=== PATIENT | male | born 1980 | race Caucasian/White ===

== ENCOUNTER 2017-04-30 02:07 | Inpatient (IN) | payer OTHER ==
[2017-04-30] MEDS ORDERED: morphine CARPU-JECT 4 MG/1 ML DISP.SYRIN IVPUSH ONE (04:15)
[2017-04-30] MEDS ORDERED: SODIUM CHLORIDE 1,000 ML IV STA ×2 (04:15→10:10)
[2017-04-30] MEDS ORDERED: ONDANSETRON 4 MG/2 ML VIAL IVPUSH ONE (04:15)
--- NOTE | 2017-04-30 04:19 | PDOC ---
History of Present Illness - General Chief Complaint: Pain Stated Complaint: ABDOMINAL PAIN Time Seen by Provider: 04/30/17 03:34 History Source: Patient Exam Limitations: No Limitations - History of Present Illness Travel History: No Initial Comments: 04/30/17 04:16 36yo Male patient with no significant past medical history presents to ED c/o RUQ abd pain x 1 week. Patient reports 8/10 pain severity. He states today around 8pm symptoms worsen. Denies n/v/d, fever, rectal bleeding, dysuria, hematuria, change in appetite. Reports Moderate EtOH use. Timing/Duration: reports: getting worse Quality: reports: moderate Abdominal Pain Onset Location: reports: RUQ Pain Radiation: reports: no radiation Activities at Onset: reports: none Treatment Prior to Arrive: worse with: analgesics, antacids, cold pack, heat, laxative, enema, other Aggravating Factors: worse with: None, Defecation, Eating, Emotional upset, Exertion, Boring, Movement, Voiding, Change in position Alleviating Factors: worse with: None, Belching, Shallow Breathing, Defecation, Eating, Holding Breath, Passing Gas, Change in Position, Rest, Voiding, Vomiting Past History - Travel Traveled outside of the country in the last 30 days: No Close contact w/someone who was outside of country & ill: No - Past Medical History Allergies/Adverse Reactions: Allergies Allergy/AdvReac Type Severity Reaction Status Date / Time No Known Allergies Allergy Verified 04/30/17 04:01 - Psycho/Social/Smoking Cessation Hx Suicidal Ideation: No Smoking History: Never smoked Have you smoked in the past 12 months: No Information on smoking cessation initiated: No Hx Alcohol Use: No Drug/Substance Use Hx: No Abd/GI Specific PMHX - Complaint Specific PMHX Colitis: No Diverticulitis: No Gall Bladder Disease: No GERD: No Hepatitis: No Irritable Bowel Synd (IBS): No Pancreatitis: No GI Ulcer Disease: No Review of Systems - Review of Systems Able to Perform ROS?: Yes Is the patient limited [place] proficient: No ABD/GI: Yes: Abdominal cramping (RUQ). No: Abdominal Distended, Diarrhea, Nausea, Vomiting : No: Symptoms Reported, See HPI, Burning, Dysuria, Discharge, Frequency, Flank Pain, Hematuria, Incontinence, Pain, Urgency, Testicular Mass, Testicular Swelling, Lesions, Testicular Pain, Other Musculoskeletal: No: Symptoms Reported, See HPI, Back Pain, Gout, Joint Pain, Joint Swelling, Muscle Pain, Muscle Weakness, Neck Pain, Joint Stiffness, Other Integumentary: No: Symptoms Reported, See HPI, Bruising, Change in Color, Change in Hair/Nails, Dryness, Erythema, Flushing, Lesions, Lumps, Pallor, Pruritus, Rash, Sweating, Other All Other Systems: Reviewed and Negative *Physical Exam - Vital Signs Last Vital Signs Temp Pulse Resp BP Pulse Ox 97.8 F 99 H 14 167/107 99 04/30/17 04:02 04/30/17 04:02 04/30/17 04:02 04/30/17 04:02 04/30/17 04:02 - Physical Exam General Appearance: Yes: Nourished, Appropriately Dressed. No: Apparent Distress, Mild Distress, Moderate Distress, Severe Distress Neck: positive: Trachea midline, Normal Thyroid, Supple. negative: Stridor, Lymphadenopathy (R), Lymphadenopathy (L), Tender lateral, Tender midline Respiratory/Chest: positive: Lungs Clear, Normal Breath Sounds. negative: Chest Tender, Respiratory Distress, Accessory Muscle Use, Labored Respiration, Rapid RR, Crackles, Rhonchi, Stridor, Wheezing Cardiovascular: positive: Regular Rhythm, Regular Rate Gastrointestinal/Abdominal: positive: Normal Bowel Sounds, Tender, Soft, Tenderness (RUQ), Other (Large). negative: Distended, Guarding, Rebound Musculoskeletal: positive: Normal Inspection. negative: CVA Tenderness Extremity: positive: Normal Capillary Refill, Normal Inspection, Normal Range of Motion. negative: Pedal Edema, Swelling, Calf Tenderness, Erythema, Inflammation Integumentary: positive: Normal Color, Dry, Warm. negative: Erythema, Cold, Clammy, Hives, Rash Neurologic: positive: air analyst II-XII NML intact, Fully Oriented, Alert, Normal Mood/ Affect, Normal Response, Motor Strength 03/17 ED Treatment Course - LABORATORY CBC & Chemistry Diagram: 04/30/17 04:35 04/30/17 04:35
[2017-04-30 04:43] LABS: BASOPHIL 0.7 % (0-2.0); EOSINOPHIL 0.3 % (0-4.5); MCHC 33.7 g/dl (32.0-35.9); MEAN CELL VOLUME 91.8 fl (80-96); MEAN PLT VOLUME 8.8 fl (7.5-11.1); NEUTROPHILS 85.1 % (42.8-82.8); PLATELET COUNT 210 K/MM3 (134-434); RDW 12.8 % (11.9-15.9)
[2017-04-30 04:53] LABS: URINE APPEARANCE CLEAR; URINE BILIRUBIN NEGATIVE (NEGATIVE); URINE BLOOD NEGATIVE (NEGATIVE); URINE COLOR LTYELLOW; URINE GLUCOSE (UA) NEGATIVE (NEGATIVE); URINE KETONE TRACE (NEGATIVE); URINE LEUK ESTERASE NEGATIVE (NEGATIVE); URINE NITRITE NEGATIVE (NEGATIVE); URINE PROTEIN NEGATIVE (NEGATIVE); URINE UROBILINOGEN NEGATIVE E.U./dl (0.2-1.0)
[2017-04-30] MEDS ORDERED: ONDANSETRON 4 MG/2 ML VIAL ONE (04:53)
[2017-04-30] MEDS ORDERED: morphine CARPU-JECT 4 MG/1 ML DISP.SYRIN ONE (04:53)
[2017-04-30 05:23] LABS: ANION GAP 9 (8-16); CALCIUM 9.1 mg/dL (8.5-10.1); CO2 26 mmol/L (21-32); GLUCOSE,RANDOM 117 mg/dL (74-106)
[2017-04-30 05:24] LABS: ALBUMIN 4.5 g/dl (3.4-5.0); BILIRUBIN,DIRECT < 0.1 mg/dL (0.0-0.2); BILIRUBIN,TOTAL 0.5 mg/dL (0.2-1.0); SGOT/AST 22 U/L (15-37); SGPT/ALT 38 U/L (12-78); TOT PROT 7.7 g/dl (6.4-8.2)
[2017-04-30 05:25] LABS: ALK PHOS 63 U/L (45-117)
--- NOTE | 2017-04-30 07:59 | PDOC ---
*Physical Exam - Vital Signs Last Vital Signs Temp Pulse Resp BP Pulse Ox 97.8 F 99 H 14 167/107 99 04/30/17 04:02 04/30/17 04:02 04/30/17 04:02 04/30/17 04:02 04/30/17 04:02 - Physical Exam General Appearance: Yes: Appropriately Dressed. No: Apparent Distress HEENT: positive: Normal Voice Neck: positive: Supple Respiratory/Chest: positive: Lungs Clear, Normal Breath Sounds. negative: Respiratory Distress Cardiovascular: positive: Regular Rate, S1, S2 Gastrointestinal/Abdominal: positive: Normal Bowel Sounds, Soft. negative: Tender, Distended, Guarding, Rebound Musculoskeletal: negative: CVA Tenderness Extremity: positive: Normal Inspection Integumentary: positive: Dry, Warm Neurologic: positive: Fully Oriented, Alert, Normal Mood/Affect ED Treatment Course - LABORATORY CBC & Chemistry Diagram: 04/30/17 04:35 04/30/17 04:35 - ADDITIONAL ORDERS Additional order review: Laboratory Results 04/30/17 04/30/17 04:40 04:35 Sodium 140 Potassium 4.0 Chloride 105 Carbon Dioxide 26 Anion Gap 9 BUN 17 Creatinine 1.0 Random Glucose 117 H Calcium 9.1 Total Bilirubin 0.5 Direct Bilirubin < 0.1 AST 22 ALT 38 Alkaline Phosphatase 63 Total Protein 7.7 Albumin 4.5 Urine Color Ltyellow Urine Appearance Clear Urine pH 5.0 Urine Protein Negative Urine Glucose (UA) Negative Urine Ketones Trace H Urine Blood Negative Urine Nitrite Negative Urine Bilirubin Negative Urine Urobilinogen Negative Ur Leukocyte Esterase Negative 04/30/17 04:35 RBC 4.88 MCV 91.8 MCHC 33.7 RDW 12.8 MPV 8.8 Neutrophils % 85.1 H Lymphocytes % 9.9 Monocytes % 4.0 Eosinophils % 0.3 Basophils % 0.7 - Medications Given in the ED: ED Medications Discontinued Medications Generic Name Dose Route Start Last Admin Trade Name Freq PRN Reason Stop Dose Admin Sodium Chloride 1,000 mls @ 1,000 mls/hr 04/30/17 04:15 04/30/17 05:02 Normal Saline - IV 04/30/17 05:14 1,000 mls/hr ASDIR STA Administration Morphine Sulfate 4 mg 04/30/17 04:15 04/30/17 05:02 Morphine Injection - IVPUSH 04/30/17 04:16 4 mg ONCE ONE Administration Ondansetron HCl 4 mg 04/30/17 04:15 04/30/17 05:02 Zofran Injection IVPUSH 04/30/17 04:16 4 mg ONCE ONE Administration Medical Decision Making - Medical Decision Making 04/30/17 07:55 Patient sign out to me at 7 AM Patient is a 36-year-old male, denies any significant past medical history, here with right upper quadrant pain that started last night. States in the past 3 weeks, he's had similar pain but never this severe. Denies any associated symptoms. As per prior team, patient was ttp to right upper quadrant, but no Gil's. Labs essentially unremarkable. Pt currently pain free w/ benign abd. CT abdomen and pelvis pending 04/30/17 07:59 04/30/17 10:11 Acute betty w/ stone in GB neck on CT. Wbc of 12. LFTs unremarkable. Abx and IVF in progress. Will order pre-op labs and get surgery c/s 04/30/17 10:16 Case d/w Dr Azevedo, wants pt admitted to hospitalist 04/30/17 10:18 04/30/17 10:18 *DC/Admit/Observation/Transfer Diagnosis at time of Disposition: Acute cholecystitis - Discharge Dispostion Condition at time of disposition: Fair Admit: Yes
[2017-04-30] MEDS ORDERED: CEFAZOLIN 1 GM in DEXTROSE 5%-WATER - 50 ML IVPB ONE (10:10)
[2017-04-30] MEDS ORDERED: CEFAZOLIN (PRE-DOCKED) 50 ML IVPB ONE (10:41)
[2017-04-30] MEDS ORDERED: HYDROmorphone HCL CARPU-JECT 1 MG/1 ML DISP.SYRIN IVPUSH PRN (11:28)
[2017-04-30] MEDS ORDERED: ONDANSETRON 4 MG/2 ML VIAL IVPB PRN (11:28)
[2017-04-30] MEDS: DEXTROSE 5%-0.45% SALINE 1,000 ML IV SCH (11:41)
[2017-04-30 11:43] LABS: INR 1.15 (0.82-1.09); PROTHROMBIN TIME (PATIENT) 12.7 SEC (9.98-11.88)
--- NOTE | 2017-04-30 14:07 | HP ---
CHIEF COMPLAINT: Abdominal Pain PCP: does not have one HISTORY OF PRESENT ILLNESS: This 36yo Male patient with no significant past medical history presents to ED c /o RUQ abd pain x 1 week. Patient reports 8/10 pain severity. He states today around 8pm symptoms worsen. Denies n/v/d, fever, rectal bleeding, dysuria, hematuria, change in appetite. Reports Moderate EtOH use. ER course was notable for: (1) finding of Cholecysitis requiring ABT (2)surgical consult placed to Dr. Azevedo (3) Recent Travel: none PAST MEDICAL HISTORY: none PAST SURGICAL HISTORY: none Social History: Smoking: Alcohol: Drugs: Family History: Allergies No Known Allergies Allergy (Verified 04/30/17 04:01) HOME MEDICATIONS: Home Medications Medication Instructions Recorded NK [No Known Home Medication] 04/30/17 REVIEW OF SYSTEMS CONSTITUTIONAL: Absent: fever, chills, diaphoresis, generalized weakness, malaise, loss of appetite, weight change HEENT: Absent: rhinorrhea, nasal congestion, throat pain, throat swelling, difficulty swallowing, mouth swelling, ear pain, eye pain, visual changes CARDIOVASCULAR: Absent: chest pain, syncope, palpitations, irregular heart rate, lightheadedness , peripheral edema RESPIRATORY: Absent: cough, shortness of breath, dyspnea with exertion, orthopnea, wheezing, stridor, hemoptysis GASTROINTESTINAL: Absent: (+)abdominal pain, abdominal distension, nausea, vomiting, diarrhea, constipation, melena, hematochezia GENITOURINARY: Absent: dysuria, frequency, urgency, hesitancy, hematuria, flank pain, genital pain MUSCULOSKELETAL: Absent: myalgia, arthralgia, joint swelling, back pain, neck pain SKIN: Absent: rash, itching, pallor HEMATOLOGIC/IMMUNOLOGIC: Absent: easy bleeding, easy bruising, lymphadenopathy, frequent infections ENDOCRINE: Absent: unexplained weight gain, unexplained weight loss, heat intolerance, cold intolerance NEUROLOGIC: Absent: headache, focal weakness or paresthesias, dizziness, unsteady gait, seizure, mental status changes, bladder or bowel incontinence PSYCHIATRIC: Absent: anxiety, depression, suicidal or homicidal ideation, hallucinations. PHYSICAL EXAMINATION Vital Signs - 24 hr 04/30/17 04/30/17 04/30/17 04:02 08:00 12:30 Temperature 97.8 F 97.8 F 98.4 F Pulse Rate 99 H Pulse Rate [ 79 72 Right] Respiratory 14 16 18 Rate Blood Pressure 167/107 Blood Pressure 148/95 142/95 [Right Arm] O2 Sat by Pulse 99 96 96 Oximetry (%) GENERAL: Awake, alert, and fully oriented, in no acute distress. HEAD: Normal with no signs of trauma. EYES: Pupils equal, round and reactive to light, extraocular movements intact, sclera anicteric, conjunctiva clear. No lid lag. EARS, NOSE, THROAT: Ears normal, nares patent, oropharynx clear without exudates. Moist mucous membranes. NECK: Normal range of motion, supple without lymphadenopathy, JVD, or masses. LUNGS: Breath sounds equal, clear to auscultation bilaterally. No wheezes, and no crackles. No accessory muscle use. HEART: Regular rate and rhythm, normal S1 and S2 without murmur, rub or gallop. ABDOMEN: Soft, (+)tender, not distended, normoactive bowel sounds, no guarding, no rebound, no masses. No hepatomegaly or splenomegaly. MUSCULOSKELETAL: Normal range of motion at all joints. No bony deformities or tenderness. No CVA tenderness. UPPER EXTREMITIES: 2+ pulses, warm, well-perfused. No cyanosis. No clubbing. No peripheral edema. LOWER EXTREMITIES: 2+ pulses, warm, well-perfused. No calf tenderness. No peripheral edema. NEUROLOGICAL: Cranial nerves II-XII intact. Normal speech. Normal gait. PSYCHIATRIC: Cooperative. Good eye contact. Appropriate mood and affect. SKIN: Warm, dry, normal turgor, no rashes or lesions noted, normal capillary refill. Laboratory Results - last 24 hr 04/30/17 04/30/17 04/30/17 04:35 04:35 04:40 WBC 12.0 H RBC 4.88 Hgb 15.1 Hct 44.8 MCV 91.8 MCHC 33.7 RDW 12.8 Plt Count 210 MPV 8.8 Neutrophils % 85.1 H Lymphocytes % 9.9 Monocytes % 4.0 Eosinophils % 0.3 Basophils % 0.7 INR PTT (Actin FS) Sodium 140 Potassium 4.0 Chloride 105 Carbon Dioxide 26 Anion Gap 9 BUN 17 Creatinine 1.0 Random Glucose 117 H Calcium 9.1 Total Bilirubin 0.5 Direct Bilirubin < 0.1 AST 22 ALT 38 Alkaline Phosphatase 63 Total Protein 7.7 Albumin 4.5 Lipase 151 Urine Color Ltyellow Urine Appearance Clear Urine pH 5.0 Urine Protein Negative Urine Glucose (UA) Negative Urine Ketones Trace H Urine Blood Negative Urine Nitrite Negative Urine Bilirubin Negative Urine Urobilinogen Negative Ur Leukocyte Esterase Negative Blood Type Antibody Screen 04/30/17 04/30/17 04/30/17 11:20 11:20 11:46 WBC RBC Hgb Hct MCV MCHC RDW Plt Count MPV Neutrophils % Lymphocytes % Monocytes % Eosinophils % Basophils % INR 1.15 H PTT (Actin FS) 33.8 Sodium Potassium Chloride Carbon Dioxide Anion Gap BUN Creatinine Random Glucose Calcium Total Bilirubin Direct Bilirubin AST ALT Alkaline Phosphatase Total Protein Albumin Lipase Urine Color Urine Appearance Urine pH Urine Protein Urine Glucose (UA) Urine Ketones Urine Blood Urine Nitrite Urine Bilirubin Urine Urobilinogen Ur Leukocyte Esterase Blood Type O POSITIVE Antibody Screen Negative 04/30/17 11:46 WBC RBC Hgb Hct MCV MCHC RDW Plt Count MPV Neutrophils % Lymphocytes % Monocytes % Eosinophils % Basophils % INR PTT (Actin FS) Sodium Potassium Chloride Carbon Dioxide Anion Gap BUN Creatinine Random Glucose Calcium Total Bilirubin Direct Bilirubin AST ALT Alkaline Phosphatase Total Protein Albumin Lipase 91 Urine Color Urine Appearance Urine pH Urine Protein Urine Glucose (UA) Urine Ketones Urine Blood Urine Nitrite Urine Bilirubin Urine Urobilinogen Ur Leukocyte Esterase Blood Type Antibody Screen ASSESSMENT/PLAN: This 36 yr old obese male with c/o severe abd pain earlier today was found to have cholecystitis 1. Cholecystitis -ABT -consult to Dr. Azevedo -[facility], NPO after MN -pain managment Visit type - Emergency Visit Emergency Visit: Yes Care time: The patient presented to the Emergency Department on the above date and was hospitalized for further evaluation of their emergent condition. - New Patient This patient is new to me today: Yes Date on this admission: 04/30/17 - Critical Care Critical Care patient: No
[2017-04-30] MEDS ORDERED: CEFTRIAXONE 1 GM in DEXTROSE 5%-WATER - 50 ML IVPB SCH (17:00)
[2017-04-30] MEDS ORDERED: CEFTRIAXONE 50 ML IVPB SCH (17:04)
[2017-04-30] MEDS ORDERED: PIPERACILLIN/TAZOB 3.375 GM/50 ML PRE-DOCKED IVPB SCH (18:00)
[2017-04-30] MEDS ORDERED: HEPARIN NA (PORCINE) 5,000 UNITS/ML 1ML VIAL ONE (18:33)
[2017-04-30] MEDS ORDERED: METRONIDAZOLE 500 MG PREMIXED 100 ML IVPB ONE (18:34)
[2017-04-30] MEDS: HEPARIN NA (PORCINE) 5,000 UNITS/ML 1ML VIAL SQ SCH (18:35)
[2017-04-30] MEDS: METRONIDAZOLE 500 MG PREMIXED 100 ML IVPB SCH (18:35)
[2017-04-30 19:18] VITALS: BMI 33.7
[2017-05-01] MEDS ORDERED: BUPIVACAINE HCL/PF 0.5% (5MG/ML) 10 ML VIAL IJ ONE
[2017-05-01] MEDS ORDERED: HEPARIN NA (PORCINE) 5,000 UNITS/ML 1ML VIAL ONE (01:28)
[2017-05-01] MEDS ORDERED: METRONIDAZOLE 500 MG PREMIXED 100 ML IVPB ONE (01:28)
[2017-05-01] MEDS: DEXTROSE 5%-0.45% SALINE 1,000 ML IV SCH ×3 (01:39→21:25)
[2017-05-01] MEDS: HEPARIN NA (PORCINE) 5,000 UNITS/ML 1ML VIAL SQ SCH (01:39)
[2017-05-01] MEDS: METRONIDAZOLE 500 MG PREMIXED 100 ML IVPB SCH (01:39)
[2017-05-01 07:15] LABS: BASOPHIL 0.4 % (0-2.0); EOSINOPHIL 2.9 % (0-4.5); MCHC 34.8 g/dl (32.0-35.9); MEAN PLT VOLUME 8.9 fl (7.5-11.1); NEUTROPHILS 52.9 % (42.8-82.8); PLATELET COUNT 171 K/MM3 (134-434); RDW 12.7 % (11.9-15.9); WHITE BLOOD COUNT 5.9 K/mm3 (4.0-10.0)
[2017-05-01 07:38] LABS: ALBUMIN 3.6 g/dl (3.4-5.0); ANION GAP 6 (8-16); CALCIUM 8.4 mg/dL (8.5-10.1); CO2 28 mmol/L (21-32); GLUCOSE,RANDOM 85 mg/dL (74-106); MAGNESIUM 2.3 mg/dL (1.8-2.4)
[2017-05-01 07:41] LABS: ALK PHOS 64 U/L (45-117); BILIRUBIN,TOTAL 0.9 mg/dL (0.2-1.0); CREATININE 0.9 mg/dL (0.7-1.3); PHOSPHOROUS 3.4 mg/dL (2.5-4.9); SGOT/AST 34 U/L (15-37); SGPT/ALT 70 U/L (12-78); TOT PROT 6.1 g/dl (6.4-8.2)
--- NOTE | 2017-05-01 08:40 | CONSULT ---
- Consultation REQUESTING PROVIDER: LOLLY Marie CONSULT REQUEST: We have been asked to surgically evaluate this patient for abdominal pain secondary to acute cholecystitis/cholelithiasis PCP:Yina Bravo MD HISTORY OF PRESENT ILLNESS: CTSP for eval/management of above; he presented w/ nausea and vomiting and RUQ abdominal pain progressive over 1 week. PMHx: none PSHx: none Home Medications Medication Instructions Recorded NK [No Known Home Medication] 04/30/17 Allergies Allergy/AdvReac Type Severity Reaction Status Date / Time No Known Allergies Allergy Verified 04/30/17 04:01 REVIEW OF SYSTEMS: CONSTITUTIONAL: Absent: fever, chills, diaphoresis, generalized weakness, malaise, loss of appetite, weight change CARDIOVASCULAR: Absent: chest pain, syncope, palpitations, irregular heart rate, lightheadedness , peripheral edema RESPIRATORY: Absent: cough, shortness of breath, dyspnea with exertion, wheezing, stridor, hemoptysis GASTROINTESTINAL: Absent: abdominal pain, abdominal distension, nausea, vomiting, diarrhea, constipation, melena, hematochezia GENITOURINARY: Absent: dysuria, frequency, urgency, hesitancy, hematuria, flank pain, genital pain MUSCULOSKELETAL: Absent: myalgia, arthralgia, joint swelling, back pain, neck pain SKIN: Absent: rash, itching, pallor HEMATOLOGIC/IMMUNOLOGIC: Absent: easy bleeding, easy bruising, lymphadenopathy NEUROLOGIC: Absent: headache, focal weakness, paresthesias, dizziness, unsteady gait, seizure, mental status changes, bladder or bowel incontinence PSYCHIATRIC: Absent: anxiety, depression, suicidal or homicidal ideation, hallucinations. PHYSICAL EXAM: GENERAL: Awake, alert, and fully oriented, in no acute distress. HEAD: Normal with no signs of trauma. EYES: PERRL, sclera anicteric, conjunctiva clear. NECK: Normal ROM, supple without lymphadenopathy, JVD, or masses. ABDOMEN: Soft, tender RUQ, not distended, normoactive bowel sounds, no guarding , no rebound, no masses. No organomegaly. MUSCULOSKELETAL: Normal ROM at all joints. No bony deformities or tenderness. No CVA tenderness. UPPER EXTREMITIES: 2+ pulses, warm, well-perfused. No cyanosis. Cap refill <2 seconds. No peripheral edema. LOWER EXTREMITIES: 2+ pulses, warm, well-perfused. No calf tenderness. No peripheral edema. NEUROLOGICAL: Normal speech, gait not observed. PSYCH: Cooperative. Good eye contact. Appropriate mood and affect. SKIN: Warm, dry, normal turgor, no rashes or lesions noted. Vital Signs Temperature 97.4 F L 05/01/17 06:00 Pulse Rate 62 05/01/17 06:00 Respiratory Rate 18 05/01/17 06:00 Blood Pressure 134/91 05/01/17 06:00 O2 Sat by Pulse Oximetry (%) 97 04/30/17 21:00 Lab Results WBC 5.9 K/mm3 (4.0-10.0) D 05/01/17 06:20 RBC 4.39 M/mm3 (4.00-5.60) 05/01/17 06:20 Hgb 14.1 GM/dL (11.7-16.9) 05/01/17 06:20 Hct 40.4 % (35.4-49) 05/01/17 06:20 MCV 92.0 fl (80-96) 05/01/17 06:20 MCHC 34.8 g/dl (32.0-35.9) 05/01/17 06:20 RDW 12.7 % (11.9-15.9) 05/01/17 06:20 Plt Count 171 K/MM3 (134-434) 05/01/17 06:20 Sodium 141 mmol/L (136-145) 05/01/17 06:20 Potassium 3.6 mmol/L (3.5-5.1) 05/01/17 06:20 Chloride 107 mmol/L (98-107) 05/01/17 06:20 Carbon Dioxide 28 mmol/L (21-32) 05/01/17 06:20 Anion Gap 6 (8-16) L 05/01/17 06:20 BUN 10 mg/dL (7-18) D 05/01/17 06:20 Creatinine 0.9 mg/dL (0.7-1.3) 05/01/17 06:20 Random Glucose 85 mg/dL (74-106) D 05/01/17 06:20 Calcium 8.4 mg/dL (8.5-10.1) L 05/01/17 06:20 Blood Type O POSITIVE 04/30/17 11:20 Antibody Screen Negative 04/30/17 11:20 INR 1.15 (0.82-1.09) H 04/30/17 11:20 labs/imaging reviewed. IMP:acute cholecystitis/cholelithiasis PLAN: NPO/IVF/IVAB's; lap betty possible open; r/b/t/a's d/w the patient who wishes to proceed. Juma Azevedo MD FACS Visit type - Case Type Case Type: ED Admission - Emergency Emergency Visit: Yes ED Registration Date: 04/30/17 Care time: The patient presented to the Emergency Department on the above date and was hospitalized for further evaluation of their emergent condition. - New patient This patient is new to me today: Yes Date on this admission: 05/01/17 - Critical Care Critical Care patient: No
--- NOTE | 2017-05-01 14:54 | PN ---
Physical Exam: SUBJECTIVE: Patient seen and examined at bedside in ER. He has no abdominal complaint and stated the pain is well under controlled with dilaudid. He asked when he's going to the OR. Denies n/v, abd pain, chest pain, sob, fever or chill. OBJECTIVE: Vital Signs Period Temp Pulse Resp BP Sys/Burrell Pulse Ox Last 24 Hr 97.4 F-98.6 F 62-89 18-20 134-149/80-98 97-97 GENERAL: AAO x 3 in no acute distress. LUNGS: CTAB HEART:RRR, S1, S2 without murmur, rub or gallop. ABDOMEN: Soft, nontender, nondistended, normoactive bowel sounds, no guarding, no rebound, -ve ochoa's sign. EXTREMITIES: 2+ pulses, warm, well-perfused, no edema. CBCD WBC 5.9 K/mm3 (4.0-10.0) D 05/01/17 06:20 RBC 4.39 M/mm3 (4.00-5.60) 05/01/17 06:20 Hgb 14.1 GM/dL (11.7-16.9) 05/01/17 06:20 Hct 40.4 % (35.4-49) 05/01/17 06:20 MCV 92.0 fl (80-96) 05/01/17 06:20 MCHC 34.8 g/dl (32.0-35.9) 05/01/17 06:20 RDW 12.7 % (11.9-15.9) 05/01/17 06:20 Plt Count 171 K/MM3 (134-434) 05/01/17 06:20 MPV 8.9 fl (7.5-11.1) 05/01/17 06:20 CMP Sodium 141 mmol/L (136-145) 05/01/17 06:20 Potassium 3.6 mmol/L (3.5-5.1) 05/01/17 06:20 Chloride 107 mmol/L (98-107) 05/01/17 06:20 Carbon Dioxide 28 mmol/L (21-32) 05/01/17 06:20 Anion Gap 6 (8-16) L 05/01/17 06:20 BUN 10 mg/dL (7-18) D 05/01/17 06:20 Creatinine 0.9 mg/dL (0.7-1.3) 05/01/17 06:20 Creat Clearance w eGFR > 60 (>60) 05/01/17 06:20 Calcium 8.4 mg/dL (8.5-10.1) L 05/01/17 06:20 Total Bilirubin 0.9 mg/dL (0.2-1.0) D 05/01/17 06:20 AST 34 U/L (15-37) D 05/01/17 06:20 ALT 70 U/L (12-78) D 05/01/17 06:20 Alkaline Phosphatase 64 U/L (45-117) 05/01/17 06:20 Total Protein 6.1 g/dl (6.4-8.2) L D 05/01/17 06:20 Albumin 3.6 g/dl (3.4-5.0) 05/01/17 06:20 Active Medications Generic Name Dose Route Start Last Admin Trade Name Freq PRN Reason Stop Dose Admin Heparin Sodium (Porcine) 5,000 unit 04/30/17 18:00 05/01/17 01:39 Heparin - SQ Not Given Q8H-IV JADE Hydromorphone HCl 1 mg 04/30/17 11:28 Dilaudid Injection - IVPUSH Q4H PRN PAIN Dextrose/Sodium Chloride 1,000 mls @ 100 mls/hr 04/30/17 11:30 05/01/17 08:02 D5-1/2ns - IV 100 mls/hr ASDIR JADE Administration Metronidazole 100 mls @ 100 mls/hr 04/30/17 18:00 05/01/17 01:39 Flagyl 500mg Premixed Ivpb - IVPB 100 mls/hr Q8H-IV JADE Administration Ceftriaxone Sodium 50 mls @ 100 mls/hr 04/30/17 17:04 Rocephin 1gm Ivpb (Pre-Docked) IVPB DAILY JADE Ondansetron HCl 4 mg 04/30/17 11:28 Zofran Injection IVPB Q6H PRN NAUSEA IMAGING Abd CT on 04/30: overdistended gallbladder with 2.4cm stone at the neck of the gallbladder + edema around, no cyst/abscess CXR on 04/30: no acute finding ASSESSMENT/PLAN: 36 yo M admitted to med-surg for cholecystitis. Acute calculus cholecystitis, uncomplicated - Cholecystectomy scheduled today - Consider d/c abx after 24 hours surgery - Liquid diet - Cont. dilaudid 1mg Q4H - Antiemetics for n/v FEN - d/c fluid - Normal lytes - Liquid diet after surgery Prophylaxis - DVT: heparin sq - GI: not indicated Dispo - Monitor for 24 hours after surgery Visit type - Emergency Visit Emergency Visit: Yes ED Registration Date: 04/30/17 Care time: The patient presented to the Emergency Department on the above date and was hospitalized for further evaluation of their emergent condition. - New Patient This patient is new to me today: Yes Date on this admission: 05/01/17 - Critical Care Critical Care patient: No
[2017-05-01] MEDS ORDERED: BUPIVACAINE HCL/PF 0.5% (5MG/ML) 10 ML VIAL ONE (15:42)
--- NOTE | 2017-05-01 16:57 | PN ---
Teaching Attending Note Name of Resident: Rubio Stevens ATTENDING PHYSICIAN STATEMENT I saw and evaluated the patient. I reviewed the resident's note and discussed the case with the resident. I agree with the resident's findings and plan as documented. SUBJECTIVE: seen in preop denies pain no nausea no vomiting OBJECTIVE: Vital Signs Temperature 98.4 F 05/01/17 11:30 Pulse Rate 80 05/01/17 11:30 Respiratory Rate 20 05/01/17 11:30 Blood Pressure 140/89 05/01/17 11:30 O2 Sat by Pulse Oximetry (%) 97 04/30/17 21:00 GENERAL: AAO x 3 in no acute distress. LUNGS: CTAB HEART:RRR, S1, S2 without murmur, rub or gallop. ABDOMEN: Soft, nontender, nondistended, normoactive bowel sounds, no guarding, no rebound, -ve ochoa's sign. EXTREMITIES: 2+ pulses, warm, well-perfused, no edema. CMP Sodium 141 mmol/L (136-145) 05/01/17 06:20 Potassium 3.6 mmol/L (3.5-5.1) 05/01/17 06:20 Chloride 107 mmol/L (98-107) 05/01/17 06:20 Carbon Dioxide 28 mmol/L (21-32) 05/01/17 06:20 Anion Gap 6 (8-16) L 05/01/17 06:20 BUN 10 mg/dL (7-18) D 05/01/17 06:20 Creatinine 0.9 mg/dL (0.7-1.3) 05/01/17 06:20 Creat Clearance w eGFR > 60 (>60) 05/01/17 06:20 Random Glucose 85 mg/dL (74-106) D 05/01/17 06:20 Calcium 8.4 mg/dL (8.5-10.1) L 05/01/17 06:20 Phosphorus 3.4 mg/dL (2.5-4.9) 05/01/17 06:20 Magnesium 2.3 mg/dL (1.8-2.4) 05/01/17 06:20 Total Bilirubin 0.9 mg/dL (0.2-1.0) D 05/01/17 06:20 Direct Bilirubin < 0.1 mg/dL (0.0-0.2) 04/30/17 04:35 AST 34 U/L (15-37) D 05/01/17 06:20 ALT 70 U/L (12-78) D 05/01/17 06:20 Alkaline Phosphatase 64 U/L (45-117) 05/01/17 06:20 Total Protein 6.1 g/dl (6.4-8.2) L D 05/01/17 06:20 Albumin 3.6 g/dl (3.4-5.0) 05/01/17 06:20 Lipase 91 U/L (73-393) 04/30/17 11:46 CBC, BMP 05/01/17 06:20 05/01/17 06:[address] on 04/30: overdistended gallbladder with 2.4cm stone at the neck of the gallbladder + edema around, no cyst/abscess ASSESSMENT AND PLAN: 36 year old otherwise healthy male that presented with abdominal pain and found to have acute cholecystitis - NPO - IVF - for lap betty today - pain control with morphine PRN
[2017-05-01] MEDS ORDERED: MIDAZOLAM HCL 2 MG/2 ML SINGLE DOSE VIAL ONE ×2 (18:11)
[2017-05-01] MEDS ORDERED: ROCURONIUM BROMIDE 50 MG/5 ML VIAL ONE (18:11)
[2017-05-01] MEDS ORDERED: PROPOFOL 20 ML ONE ×2 (18:11→18:25)
[2017-05-01] MEDS ORDERED: SUCCINYLCHOLINE CHLORIDE 200 MG/10 ML VIAL ONE (18:11)
[2017-05-01] MEDS ORDERED: NEOSTIGMINE METHYLSULFATE 0.5 MG/ML - 10 ML MDV ONE (19:34)
[2017-05-01] MEDS ORDERED: KETOROLAC TROMETHAMINE 30 MG/1 ML VIAL ONE (19:36)
[2017-05-01] MEDS ORDERED: GLYCOPYRROLATE 0.2 MG/1 ML VIAL ONE (19:36)
--- NOTE | 2017-05-01 19:46 | OP ---
Operative Note - Note: Operative Date: 05/01/17 Pre-Operative Diagnosis: Acute cholecystitis Operation: Laparoscopic cholecystectomy Post-Operative Diagnosis: Same as Pre-op Surgeon: Juma Azevedo Manager [place]: Sathish Montalvo Anesthesiologist/EIGHT SECTION BLOWER: Ann-Marie Mei Anesthesia: General Specimens Removed: Gall bladder Estimated Blood Loss (mls): 20 Fluid Volume Replaced (mls): 1,000 Operative Report Dictated: Yes
[2017-05-01] MEDS ORDERED: ACETAMINOPHEN 1000 MG/100 ML VIAL (NON FORMULARY) IVPB PRN (19:47)
--- NOTE | 2017-05-01 19:47 | SURG ---
Surgery Private Sector Executive Note Private Sector Executive: Sathish Montalvo PA-C Date of Service: 05/01/17 Diagnosis: Acute cholecystitis Procedure: Laparoscopic cholecystectomy I was present for the entirety of the operative procedure. For further detail, please refer to operative report. Visit type - Case Type Case Type: ED Admission - Emergency Emergency Visit: Yes ED Registration Date: 04/30/17 Care time: The patient presented to the Emergency Department on the above date and was hospitalized for further evaluation of their emergent condition. - New patient This patient is new to me today: Yes Date on this admission: 05/01/17
[2017-05-01] MEDS ORDERED: HYDROmorphone HCL CARPU-JECT 1 MG/1 ML DISP.SYRIN IVPUSH PRN ×2 (19:56→20:25)
[2017-05-01] MEDS ORDERED: ONDANSETRON 4 MG/2 ML VIAL IVPUSH PRN (19:56)
[2017-05-01] MEDS ORDERED: LACTATED RINGERS SOLUTION 1,000 ML IV SCH (20:00)
[2017-05-01] MEDS ORDERED: ONDANSETRON 4 MG/2 ML VIAL IVPB PRN (20:25)
[2017-05-01] MEDS ORDERED: METRONIDAZOLE 500 MG PREMIXED 500 MG/100 ML MG IVPB ONE (20:34)
[2017-05-01] MEDS ORDERED: CEFTRIAXONE 50 ML ONE (20:49)
[2017-05-01] MEDS ORDERED: cefTRIAXone 1 GM/50 ML BAG (PRE-DOCKED) IVPB ONE (21:07)
[2017-05-01] MEDS ORDERED: ONDANSETRON 4 MG/2 ML VIAL ONE (21:14)
[2017-05-01] MEDS: cefTRIAXone 1 GM/50 ML BAG (PRE-DOCKED) IVPB SCH (22:03)
[2017-05-01] MEDS: oxyCODONE HCL 10 MG SUSTAINED ACTING TABLET PO SCH (22:06)
[2017-05-02] MEDS: METRONIDAZOLE 500 MG PREMIXED 100 ML IVPB SCH ×2 (01:17→09:22)
[2017-05-02] MEDS: HEPARIN NA (PORCINE) 5,000 UNITS/ML 1ML VIAL SQ SCH ×2 (01:20→09:26)
[2017-05-02] MEDS: DEXTROSE 5%-0.45% SALINE 1,000 ML IV SCH (06:09)
--- NOTE | 2017-05-02 07:56 | PN ---
Progress Note (short form) - Note Progress Note: POD #1 Alert. Doing well. Ambulating unassisted. Voiding spontaneously. Tolerating PO clears. C/o mild incisional tenderness. Pain control via PRN meds. Denies n/v/f/ c, CP or SOB. Last Vital Signs Temp Pulse Resp BP Pulse Ox 97.9 F 76 18 156/92 98 05/02/17 07:08 05/02/17 07:08 05/02/17 07:08 05/02/17 07:08 05/01/17 21:10 PE Gen: nad Abd: all surgical ports intact. No hematoma. LE: soft, NT bilat <Sathish Montalvo P - Last Filed: 05/02/17 07:51> - Note Progress Note: Atending Surgeon POD #1 Patient seen and evaluated; concur w/ a/p as outlined by LOLLY Montalvo; office f/u next week. <Juma Azevedo N - Last Filed: 05/02/17 09:41> Problem List - Problems (1) S/P laparoscopic cholecystectomy Assessment/Plan: Advance diet to regular Cont to ambulate Cleared for discharge from a surgical standpoint. PO pain management escribed to his pharmacy. f/u with Dr. Azevedo as directed in his dc packet. Code(s): Z90.49 - ACQUIRED ABSENCE OF OTHER SPECIFIED PARTS OF DIGESTIVE TRACT (2) Acute cholecystitis Code(s): K81.0 - ACUTE CHOLECYSTITIS <Sathish Montalvo P - Last Filed: 05/02/17 07:51>
--- NOTE | 2017-05-02 08:16 | PN ---
Progress Note (short form) - Note Progress Note: Post op day#1.S/P Lap cholecystectomy under Ga uneventful.Patient stable.No any anesthesia related problem.Patient Dc from the anesthesia care.
[2017-05-02] MEDS: cefTRIAXone 1 GM/50 ML BAG (PRE-DOCKED) IVPB SCH (09:22)
[2017-05-02] MEDS: oxyCODONE HCL 10 MG SUSTAINED ACTING TABLET PO SCH (09:25)
[2017-05-02] MEDS ORDERED: CEFTRIAXONE 50 ML IVPB SCH (10:00)
--- NOTE | 2017-05-02 10:46 | PN ---
Teaching Attending Note Name of Resident: Rubio Stevens ATTENDING PHYSICIAN STATEMENT I saw and evaluated the patient. I reviewed the resident's note and discussed the case with the resident. I agree with the resident's findings and plan as documented. SUBJECTIVE: Patient has no complaints. OBJECTIVE: Vital Signs Period Temp Pulse Resp BP Sys/Burrell Pulse Ox Last 24 Hr 97.5 F-98.9 F 61-82 16-20 126-157/74-92 98-100 HEART: S1S2, RRR LUNGS: Clear ABDOMEN: Soft, non-tender, non-distended, normal BS EXTREMITIES: No edema ASSESSMENT AND PLAN: This is a 36 year old man with no significant past medical history who presented to the ER with abdominal pain. 1. Acute cholecystitis - s/p lap betty 05/01 - Doing well - Ok for discharge today
--- NOTE | 2017-05-02 10:55 | DS ---
"Physical Exam: SUBJECTIVE: Patient stated he's tolerating diet. No bowel movement or passing gas yet. No chest or abd pain, fever, chills, n/v. No acute event noted by nurse overnight. OBJECTIVE: Vital Signs Period Temp Pulse Resp BP Sys/Burrell Pulse Ox Last 24 Hr 97.5 F-98.9 F 61-82 16-20 126-157/74-92 98-100 PHYSICAL EXAM GENERAL: AAO x 3 in no acute distress. LUNGS: CTAB HEART:RRR, S1, S2 without murmur, rub or gallop. ABDOMEN: Soft, nontender, nondistended, hypoactive bowel sounds, no guarding, no rebound, clean surgical sites covered with bandaids EXTREMITIES: 2+ pulses, warm, well-perfused, no edema. LABS HOSPITAL COURSE: Date of Admission:04/30/17 36 yo M admitted to [facility]-surg for cholecystitis. It's confirmed with CT imaging which showed an overdistended gallbladder with 2.4cm stone at the neck of the gallbladder + edema around, no cyst/abscess. Patient underwent uncomplicated lap cholecystectomy. He's tolerating diet, ambulating and in stable condition to be discharged home. He will follow up with Dr. Azevedo within a week and take percocet for pain as needed. Date of Discharge: 05/02/17 Minutes to complete discharge: 35 Discharge Summary Reason For Visit: ACUTE CHOLECYSTITIS Current Active Problems S/P laparoscopic cholecystectomy (Acute) Condition: Stable - Instructions Diet, Activity, Other Instructions: Dr. Azevedo's Discharge Instructions Dear Gonzalo Post Operative Instructions Physical activity Resume your normal everyday activity as tolerated no heavy lifting or exercise until seen by your surgeon. You may walk unlimited amounts of and climb stairs. You may resume driving the car when you feel safe and comfortable behind the wheel. Wound care If you have a bandage, leave it on, and keep dry for 48 - 72 hours. After that time discard the outer bandage. If there are tapes on the skin under the outer bandage, leave them in place. They will peel off in the next 7 to 10 days. Do Not peel them off. You may shower 2 days after surgery. If there are tapes present on the skin, they can get wet. Diet There are no dietary restrictions. Eat healthy, high-fiber foods. Drink 6 to 8 glasses of liquid each day. This will assist in keeping your bowels are regular. Pain management You may take Tylenol or acetaminophen or Ibuprofen (for example, Motrin, Advil etc.) Any pain prescription medication ordered should be taken as prescribed for moderate to severe pain. [place] [employer] checked prior to escribe of narcotic pain management. This report was requested by: Sathish Montalvo | Reference #: [id number] Call Dr. Azevedo for any of the following: Severe pain not relieved by medication Fever of 101 or higher Excessive bleeding or drainage on dressing Inability to urinate Call the office at [phone] for a post operative appointment in 7 - 10 days. Disposition: HOME - Home Medications Comprehensive Discharge Medication List: Ambulatory Orders Oxycodone HCl/Acetaminophen [Percocet 5-325 mg Tablet] 1 tab PO Q4H PRN #20 tablet MDD 6 05/01/17 This patient is new to me today: No Emergency Visit: No Critical Care patient: No - Discharge Referral Referred to [facility] No"
[2017-05-02 11:07] VITALS: BP 157/91; PULSE 85; TEMP 97.7
--- NOTE | 2017-05-03 14:29 | OP ---
DATE OF OPERATION: 05/01/2017 PREOPERATIVE DIAGNOSES: Acute cholecystitis, cholelithiasis. POSTOPERATIVE DIAGNOSES: Acute cholecystitis, cholelithiasis. PROCEDURE: Laparoscopic cholecystectomy. SURGEON: Juma Azevedo MD CLIENT DEVELOPMENT MANAGER: Sathish Montalvo PA-C ANESTHESIA: General. OPERATIVE FINDINGS: Acute cholecystitis and cholelithiasis. The rest of the findings were unremarkable. PROCEDURE: The patient was placed on the operating room table in the supine position and after the induction of general anesthesia the patient's abdomen was prepped with ChloraPrep and draped in sterile fashion. A timeout was taken and pneumoperitoneum was established above the umbilicus using a Veress needle. Once a pressure of 15 mmHg was achieved, a 5-mm port was placed at the umbilicus and laparoscopy carried out and the previously noted findings were observed. Additional 5-mm right lateral ports were placed and a subxiphoid 12-mm port. The gallbladder was placed on cephalad and lateral traction and dissection was begun at the neck of the gallbladder, opening the peritoneum medially and laterally using electrocautery. The cystic duct was then identified coursing from the neck of the gallbladder distally to the common bile duct. It was dissected proximally and distally bluntly for length. Similarly, the artery was identified and dissected. A critical view of safety was taken and then the duct and artery were sequentially divided using Endoshears after being clipped twice proximally and twice distally with large hemoclips. The gallbladder was then removed in a retrograde fashion from the liver bed using electrocautery. Prior to removal from the edge of the liver, hemostasis was checked for and noted to be good. The gallbladder was then removed from the edge of the liver, placed in the specimen retrieval bag, and brought out through the subxiphoid port. Pneumoperitoneum was reestablished. Copious irrigation carried out. Hemostasis secured and then all ports were removed under laparoscopic vision without evidence of bleeding from the port sites. The pneumoperitoneum was evacuated. All port sites were infiltrated with 0.5% Marcaine and the skin edges closed with 4-0 Vicryl in a subcuticular continuous fashion. Steri-Strips and Band-Aid dressings were placed and the procedure terminated at this point and the patient aroused from general anesthesia and transferred to the postanesthesia care unit in stable condition awake and alert. ESTIMATED BLOOD LOSS: Approximately 20 mL. REPLACEMENTS: Crystalloid. DRAINS: None. SPECIMEN: Gallbladder to Pathology. I, Juma Azevedo, was physically present in the operating room from the time the patient was placed on the operating room table until he was transferred to the postanesthesia care unit in [facility]. MD LANCE Perez/[id number]
--- NOTE | 2017-05-04 16:16 | PATH ---
Surgical Pathology Report Patient Name: YAA MONGE [facility]. Rec. #: [id number] /Age/Gender: 1980 (Age: 36) / M Account: [id number] Location: [address] [place] [address]/[facility] Taken: 05/01/2017 Received: 05/02/2017 Reported: 05/04/2017 Physicians: MD Yina Perez M.D. Specimen(s) Received GALLBLADDER Clinical History Acute cholecystitis Final Diagnosis GALLBLADDER, CHOLECYSTECTOMY: MARKED ACUTE AND CHRONIC CHOLECYSTITIS, CHOLELITHIASIS. ONE BENIGN REACTIVE LYMPH NODE. Electronically Signed Nate Adan M.D. Gross Description Received in formalin, labeled "gallbladder" is an 8.2 x 2.8 x 2.5 cm gallbladder with a 0.2 cm in length portion of cystic duct attached. There is a 0.7 cm in greatest dimension periductal lymph node present. The outer surface is wheatley-partida with a large focal defect and varies from smooth to shaggy. There is no bile present within the lumen. There is a 2.6 cm in greatest dimension green, ovoid cholelith separately received within the same container. The mucosa is wheatley-green and focally eroded. The wall of the gallbladder averages 0.4 cm in thickness. Chalk Tester sections are submitted in 2 cassettes as follows: 1-cystic duct margin and one whole bisected lymph node; 2-claims customer service representative mucosa. 05/02/2017 [facility]05/02/2017
== END 2017-05-02 11:44 | disposition home or self-care (01) | DRG 419 ==
LOC: JER 02:07 → JERBED 10:41 → J6S 05-01 21:32
PROVIDERS: ADMIT Internal Medicine; ATTEND Internal Medicine
PROC: 0FT44ZZ Resection of Gallbladder, Percutaneous Endoscopic Approach (ICD-10-PCS; principal; 2017-05-01 14:30)
DX: K80.00 Calculus of gallbladder with acute cholecystitis without obstruction (principal)
CPT/HCPCS: 36415; 71020-TC; 74177-TC; 80048; 80053; 80076; 81003; 83690; 83735; 84100; 85025; 85610; 85730; 86850; 86900; 86901; 88304-TC; 94760; 99285-25; J1644

== ENCOUNTER 2019-04-22 08:54 | Emergency (ER) | payer OTHER | END 2019-04-22 12:27 | disposition home or self-care (01) | LOC: JER 08:54 ==

== ENCOUNTER 2019-05-13 09:18 | Emergency (ER) | payer OTHER ==
[2019-05-13 09:23] VITALS: TEMP 98.1; BMI 32.7
--- NOTE | 2019-05-13 09:50 | PDOC ---
History of Present Illness - General Chief Complaint: Blood Pressure Problem Stated Complaint: LIGHT HEADED Time Seen by Provider: 05/13/19 09:31 - History of Present Illness Initial Comments: 05/13/19 09:45 38 yo M with no significant pmh who p/w lightheadedness. Patient reports acute episode of lightheadedness when on train, standing at approximately 0930 AM. States that he felt sensation that he was going to "pass out." Also endorses "swimmy sensation, " within his head. Denies spinning of room, or sensation he is spinning. Continues to report sensation of lightheadedness at rest, now slightly improved. Also endorses episode of "heart racing," lasting for seconds and resolving spontaneously. + Mild blurry vision. Denies LOC, fall. Recently seen [facility] (04/22/19) for weakness. Reports similar presyncopal event x 1 year ago. Patient denies CABELLO, vision change, palpitations, cough, wheezing, orthopena, PND , leg swelling/pain, N/V, F,C, CP, SOB, urinary complaints, hematuria, BPR, abdominal pain, diarrhea, constipation, weakness, sensory changes. PMHx: as noted above. Denies medication use. Denies h/o CAD/MT, stress testing, PE/DVT ROS: as noted SHx: + nicotine use. Denies Etoh, IVDA. Allergies: NKDA Past History - Past Medical History Allergies/Adverse Reactions: Allergies Allergy/AdvReac Type Severity Reaction Status Date / Time null Allergy Verified 05/13/19 09:23 Home Medications: Ambulatory Orders NK [No Known Home Medication] 05/13/19 Anemia: No Asthma: No Cancer: No Cardiac Disorders: No CVA: No COPD: No CHF: No DVT: No Dementia: No Diabetes: No Dialysis: No GI Disorders: No Disorders: No HTN: No Hypercholesterolemia: No Kidney Stones: No Liver Disease: No Psychiatric Problems: No Seizures: No Thyroid Disease: No Lung CA: No - Surgical History Cholecystectomy: Yes - Suicide/Smoking/Psychosocial Hx Smoking History: Current every day smoker Have you smoked in the past 12 months: No Number of Cigarettes Smoked Daily: 0 Information on smoking cessation initiated: No Hx Alcohol Use: Yes (SOCIALLY) Drug/Substance Use Hx: No Substance Use Type: None Hx Substance Use Treatment: No Review of Systems - Review of Systems Comments:: 05/13/19 09:52 GENERAL/CONSTITUTIONAL: No fever or chills. No weakness. HEAD, EYES, EARS, NOSE AND THROAT: +change in vision. No ear pain or discharge. No sore throat. CARDIOVASCULAR: No chest pain or shortness of breath RESPIRATORY: No cough, wheezing, or hemoptysis. GASTROINTESTINAL: No nausea, vomiting, diarrhea or constipation. GENITOURINARY: No dysuria, frequency, or change in urination. MUSCULOSKELETAL: No joint or muscle swelling or pain. No neck or back pain. SKIN: No rash NEUROLOGIC: + Lightheadedness. No headache, vertigo, loss of consciousness, or change in strength/sensation. ENDOCRINE: No increased thirst. No abnormal weight change HEMATOLOGIC/LYMPHATIC: No anemia, easy bleeding, or history of blood clots. ALLERGIC/IMMUNOLOGIC: No hives or skin allergy. *Physical Exam - Vital Signs Last Vital Signs Temp Pulse Resp BP Pulse Ox 98.1 F 113 H 16 183/117 H 97 05/13/19 09:21 05/13/19 09:21 05/13/19 09:21 05/13/19 09:21 05/13/19 09:21 - Physical Exam Comments: 05/13/19 09:52 GENERAL: Awake, alert, and fully oriented, in no acute distress HEAD: No signs of trauma, normocephalic, atraumatic EYES: PERRLA, EOMI, sclera anicteric, conjunctiva clear ENT: Auricles normal inspection, hearing grossly normal, nares patent, oropharynx clear without exudates. Moist mucosa NECK: Normal ROM, supple, no lymphadenopathy, JVD, or masses LUNGS: No distress, speaks full sentences, clear to auscultation bilaterally HEART: Regular rate and rhythm, normal S1 and S2, no murmurs, rubs or gallops, peripheral pulses normal and equal bilaterally. ABDOMEN: Soft, nontender, normoactive bowel sounds. No guarding, no rebound. No masses EXTREMITIES : Normal inspection, Normal range of motion, no edema. No clubbing or cyanosis. NEUROLOGICAL: Mild dysmetria on FTN. Nml LEANA. Neg Romberg. Cranial nerves II through XII grossly intact. Normal speech, normal gait, no focal sensorimotor deficits SKIN: Warm, Dry, normal turgor, no rashes or lesions noted ED Treatment Course - LABORATORY CBC & Chemistry Diagram: 05/13/19 09:47 05/13/19 09:47 - RADIOLOGY Radiology Studies Ordered: Category Date Time Status HEAD CT WITHOUT CONTRAST [CT] Stat CT Scan 05/13/19 09:42 Ordered CHEST PA & LAT [RAD] Stat Radiology 05/13/19 09:42 Ordered Medical Decision Making - Medical Decision Making 05/13/19 09:49 38 yo M with no significant pmh who p/w lightheadedness. BP 183/117, HR 113, vitals otherwise wnl, AF, A&Ox3. Physical exam unremarkable. Patient neurologically intact. Low risk PE based on Wells criteria. Will assess for end organ dysfunction, VBI/TIA, cardiac dysarrythmias, thryoid dysfunction, hypoglycemia, Etoh withdrawal, electrolyte abnml, metabolic and toxic derangements, acid-base disturbances, infection. 05/13/19 09:53 Ed Course: EKG: NSR with absent FRED, STD. Nml interval duration and axis. Nml R wave progression. Absent Q waves. 05/13/19 11:27 Laboratory Tests 05/13/19 05/13/19 09:47 09:47 WBC 5.1 Hgb 14.5 Hct 42.3 Plt Count 183 Sodium 139 Potassium 4.6 BUN 17.3 Creatinine 1.2 Troponin I < 0.02 Alcohol, Quantitative < 3.0 05/13/19 11:44 NS 1 L UA: Negative Patient advised to f/u PMD BP improved 159/114 Stable for d/c with return precautions *DC/Admit/Observation/Transfer Diagnosis at time of Disposition: Pre-syncope - Discharge Dispostion Condition at time of disposition: Stable - Referrals Referrals: Chaz Richmond MD [Staff Physician] - - Patient Instructions Printed Discharge Instructions: DI for High Blood Pressure Additional Instructions: Please return to the emergency department with any new or worsening symptoms or concerns. Please follow up with your primary care physician within 72 hours. Please follow up with PMD Monday 1:00 PM 05/15/19 - Post Discharge Activity
[2019-05-13 10:00] LABS: BASO % 0.4 % (0-2.0); EOS % 1.2 % (0-4.5); HEMATOCRIT 42.3 % (35.4-49); HEMOGLOBIN 14.5 GM/dL (11.7-16.9); LYMPH % 20.2 % (8-40); MCH 31.7 pg (25.7-33.7); MCHC 34.4 g/dl (32.0-35.9); MEAN CELL VOLUME 92.1 fl (80-96); MEAN PLT VOLUME 10.2 fl (7.5-11.1); MONO % 6.8 % (3.8-10.2); NEUT % 71.4 % (42.8-82.8); PLATELET COUNT 183 K/MM3 (134-434); RBC 4.59 M/mm3 (4.00-5.60); RDW 12.9 % (11.9-15.9); WHITE BLOOD COUNT 5.1 K/mm3 (4.0-10.0)
[2019-05-13 10:09] LABS: INR 0.96 (0.83-1.09); PROTHROMBIN TIME (PATIENT) 11.3 SEC (9.7-13.0)
--- NOTE | 2019-05-13 10:20 | PDOC ---
Attending Attestation - Resident Resident Name: Israel Antunez - ED Attending Attestation I have performed the following: I have examined & evaluated the patient, The case was reviewed & discussed with the resident, I agree w/resident's findings & plan, Exceptions are as noted - HPI HPI: 38 yo M no reported prior medical history (however he has had prior high BP measurements and does not have a PMD) presents with elevated BP, dizziness, blurry vision. He states he was getting on the train this morning to go to work , started to feel ill with dizziness, lightheadedness and blurred vision. Denies any recent changes in PO intake, no recent fevers, chills. No recent cp, SOB. - Physicial Exam PE: GENERAL: Awake, alert, and fully oriented, in no acute distress HEAD: No signs of trauma EYES: PERRLA, EOMI, sclera anicteric, conjunctiva clear ENT: Auricles normal inspection, hearing grossly normal, nares patent, oropharynx clear without exudates. Moist mucosa NECK: Normal ROM, supple, no lymphadenopathy, JVD, or masses LUNGS: Breath sounds equal, clear to auscultation bilaterally. No wheezes, and no crackles HEART: Regular rate and rhythm, normal S1 and S2, no murmurs, rubs or gallops ABDOMEN: Soft, nontender, normoactive bowel sounds. No guarding, no rebound. No masses EXTREMITIES: Normal range of motion, no edema. No clubbing or cyanosis. No cords, erythema, or tenderness NEUROLOGICAL: Cranial nerves II through XII grossly intact. Normal speech, normal gait. Motor and sensation intact SKIN: Warm, Dry, normal turgor, no rashes or lesions noted. - Medical Decision Making 05/13/19 11:45 Pt asymptomatic at present. No neuro deficits on exam. As he has had prior high BP measurements and does not have a primary, will set him up with the IM clinic for follow-up this week for a physical and evaluation for BP. NIH Stroke Scale - Last Known Well Date/Time & Onset Date Last Known Well: 05/13/19 - Initial Evaluation Level of consciousness: Alert Ask patient the month and their age: Answers both correctly Ask patient to open & close eyes; make fist and let go: Obeys both correctly Best gaze (horizontal eye movement): Normal Visual field testing: No visual field loss Facial paresis (Show teeth/raise eyebrows/close eyes tight): Normal symmetrical movement Motor Function: Left Arm: Normal Motor Function: Right Arm: Normal (extends arm 90 (or 45) degrees for 10 seconds without drift Motor Function: Left Leg: Normal (extends leg 30 degrees for 5 seconds without drift) Motor Function: Right Leg: Normal (extends leg 30 degrees for 5 seconds without drift) Limb Ataxia: No ataxia Sensory(Use pinprick test arms,legs,trunk,face/side to side): Normal Best language (Describe picture, name items, read sentences): No Aphasia Dysarthria (read several words): Normal articulation Extinction and Inattention: No abnormality - Total Score NIH Stroke Scale Score: 0
[2019-05-13 11:03] LABS: ALBUMIN 4.2 g/dl (3.4-5.0); ALK PHOS 65 U/L (45-117); ANION GAP 8 MMOL/L (8-16); BILIRUBIN,TOTAL 0.5 mg/dL (0.2-1); BLOOD UREA NITROGEN 17.3 mg/dL (7-18); CALCIUM 8.9 mg/dL (8.5-10.1); CHLORIDE 109 mmol/L (98-107); CO2 22 mmol/L (21-32); CREATININE 1.2 mg/dL (0.55-1.3); GLUCOSE,RANDOM 131 mg/dL (74-106); SGOT/AST 29 U/L (15-37); SGPT/ALT 42 U/L (13-61); SODIUM 139 mmol/L (136-145); TOT PROT 7.3 g/dl (6.4-8.2)
[2019-05-13] MEDS ORDERED: SODIUM CHLORIDE 1,000 ML IV STA (11:06)
[2019-05-13 11:31] LABS: POTASSIUM 4.6 mmol/L (3.5-5.1)
[2019-05-13 11:42] LABS: PH,URINE 5.5 (5.0-8.0); URINE APPEARANCE CLEAR; URINE BILIRUBIN NEGATIVE (NEGATIVE); URINE COLOR YELLOW; URINE GLUCOSE (UA) NEGATIVE (NEGATIVE); URINE KETONE NEGATIVE (NEGATIVE); URINE LEUK ESTERASE NEGATIVE (NEGATIVE); URINE NITRITE NEGATIVE (NEGATIVE); URINE PROTEIN NEGATIVE (NEGATIVE); URINE UROBILINOGEN 0.2 mg/dL (0.2-1.0)
[2019-05-13 12:01] LABS: COCAINE, UR NEGATIVE ng/ml (CUTOFF=300); METHADONE, UR NEGATIVE ng/ml (CUTOFF=300); OPIATES, URI NEGATIVE ng/ml (CUTOFF=300); PHENCYCLIDINE,URINE NEGATIVE ng/ml (CUTOFF=25); URINE AMPHETAMINES NEGATIVE ng/ml (CUTOFF=500); URINE BARBITURATES NEGATIVE ng/ml (CUTOFF=200); URINE BENZODIAZEPINES NEGATIVE ng/ml (CUTOFF=200)
[2019-05-13 12:02] VITALS: BP 152/97; PULSE 74
--- NOTE | 2019-05-13 16:45 | EKG ---
Test Reason : Blood Pressure : / mmHG Vent. Rate : 088 BPM Atrial Rate : 088 BPM P-R Int : 164 ms QRS Dur : 106 ms QT Int : 362 ms P-R-T Axes : 028 -02 038 degrees QTc Int : 438 ms NORMAL SINUS RHYTHM NORMAL ECG WHEN COMPARED WITH ECG OF 22-APR-2019 08:54, NO SIGNIFICANT CHANGE WAS FOUND Confirmed by GRACE CHAVEZ MD ([id number]) on 05/13/2019 4:44:55 PM Referred By: Confirmed By:GRACE CHAVEZ MD
== END 2019-05-13 12:05 | disposition home or self-care (01) ==
LOC: JER 09:18
PROC: 3E0337Z Introduction of Electrolytic and Water Balance Substance into Peripheral Vein, Percutaneous Approach (ICD-10-PCS; principal; 2019-05-13)
DX: R55 Syncope and collapse (principal)
CPT/HCPCS: 36415; 70450-TC; 71046-TC-FY; 80053; 80307; 81003; 82550; 82553; 84443; 84484; 85025; 85610; 93005; 93010; 99283-25; J7030

== ENCOUNTER 2023-04-10 08:11 | Emergency (ER) | payer OTHER ==
[2023-04-10 08:23] VITALS: BMI 34.7
[2023-04-10 09:42] LABS: BASO % 0.5 % (0-2.0); EOS % 0.2 % (0-4.5); HEMATOCRIT 44.9 % (35.4-49); HEMOGLOBIN 15.6 GM/dL (11.7-16.9); LYMPH % 12.4 % (8-40); MCH 31.6 pg (25.7-33.7); MCHC 34.8 g/dl (32.0-35.9); MEAN PLT VOLUME 8.4 fl (7.5-11.1); MONO % 4.7 % (3.8-10.2); NEUT % 82.2 % (42.8-82.8); PLATELET COUNT 225 10^3/uL (134-434); RBC 4.93 M/mm3 (4.00-5.60); RDW 12.8 % (11.9-15.9); WHITE BLOOD COUNT 8.5 K/mm3 (4.0-10.0)
[2023-04-10] MEDS ORDERED: FAMOTIDINE 20 MG/50 ML IVPB 20 MG/50 ML MG IVPB ONE ×2 (09:43→09:58)
[2023-04-10] MEDS ORDERED: SIMETHICONE 40 MG/0.6 ML BOTTLE PO ONE (09:44)
[2023-04-10] MEDS ORDERED: ALBUTEROL SO4 2.5/IPRATROPIUM 0.5 INH SOL 3 ML VIAL.NEB. NEB SCH (09:45)
[2023-04-10 09:54] LABS: POTASSIUM 4.1 mmol/L (3.5-5.1)
[2023-04-10 09:56] LABS: BLOOD UREA NITROGEN 9.6 mg/dL (7-18); CALCIUM 9.5 mg/dL (8.5-10.1)
[2023-04-10 09:57] LABS: ALBUMIN 4.4 g/dl (3.4-5.0)
[2023-04-10 10:00] LABS: CREATININE 1.1 mg/dL (0.55-1.3)
[2023-04-10 10:01] LABS: BILIRUBIN,TOTAL 0.8 mg/dL (0.2-1); TOT PROT 7.3 g/dl (6.4-8.2)
[2023-04-10 10:20] LABS: ACTIVATED PTT 34.1 SECONDS (25.2-36.5); INR 0.98 (0.83-1.09); PROTHROMBIN TIME (PATIENT) 11.4 SEC (9.7-13.0)
[2023-04-10 12:01] VITALS: BP 144/88; PULSE 82; RESP 16; TEMP 98
== END 2023-04-10 12:03 | disposition home or self-care (01) ==
LOC: JER 08:11
PROC: 3E033NZ Introduction of Analgesics, Hypnotics, Sedatives into Peripheral Vein, Percutaneous Approach (ICD-10-PCS; principal; 2023-04-10)
DX: R06.02 Shortness of breath (principal); R11.0 Nausea; R14.0 Abdominal distension (gaseous); Z20.822 Contact with and (suspected) exposure to COVID-19
CPT/HCPCS: 0241U-QW; 36415; 71046-TC-FY; 80053; 84484; 85025; 85610; 85730; 93005; 93010; 99285-25